=== PATIENT | male | born 2005 | race Caucasian/White ===

== ENCOUNTER 2023-04-10 18:52 | Emergency (ER) | payer MEDICAID ==
[~2023-04-10] VITALS: Ht 167.7 cm; Wt 71.6 kg
--- NOTE | 2023-04-10 19:17 | ED EENT ---
History of Present Illness General Stated Complaint: CONGESTION,FEVER,COUGH History of Present Illness Date Seen by Provider: Apr 10, 2023 Time Seen by Provider: 19:05 Initial Comments 17-year-old male is here with complaints of sinusitis, postnasal drip, cough for the past 1 week. Patient went to urgent care yesterday and was told that it is likely viral and he will need to be reassessed in 14 days of the start of symptoms. Patient also has subjective fever chills. Denies diarrhea, abdominal pain, shortness of breath, chest pain. No known sick contacts. Allergies and Home Medications Patient Home Medication List Home Medication List Reviewed: Yes Review of Systems Review of Systems Constitutional: chills, fever Respiratory: cough Physical Exam Vital Signs Vital Signs - First Documented 04/10/23 19:06 Temp 36.1 Pulse 75 Resp 18 B/P (MAP) 127/74 (91) Pulse Ox 100 O2 Delivery Room Air Height, Weight, BMI Height: '" Weight: lbs. oz. kg; BMI Method: General Appearance: WD/WN, no apparent distress Ears: bilateral ear TM normal Nose: sinus tenderness (Maxillary tenderness bilaterally) Mouth/Throat: normal mouth inspection, pharynx normal, other (Postnasal drip) Neck: non-tender, full range of motion, supple Cardiovascular: regular rate, rhythm Respiratory: chest non-tender, lungs clear, normal breath sounds Gastrointestinal: non tender, soft Neurologic/Psychiatric: alert, normal mood/affect, oriented x 3 Skin: normal color Progress/Results/Core Measures Results/Orders Lab Results Laboratory Tests Test 04/10/23 19:18 Range/Units Influenza Type A (RT-PCR) Not Detected Not Detecte Influenza Type B (RT-PCR) Not Detected Not Detecte SARS-CoV-2 RNA (RT-PCR) Not Detected Not Detecte My Orders Orders - REINA WARREN MD Influenza A And B By Pcr (04/10/23 19:06) Covid 19 Inhouse Test (04/10/23 19:06) Chest 1 View Ap/Pa Only (04/10/23 19:17) Vital Signs/I&O 04/10/23 19:06 Temp 36.1 Pulse 75 Resp 18 B/P (MAP) 127/74 (91) Pulse Ox 100 O2 Delivery Room Air Progress Progress Note : Progress Note 1. VIRAL SINUSITIS: - CXR: no acute findings - COVID test/ Rapid Flu test: negative - Advised to continue Tylenol Cold & Flu as needed - Advised over the counter Flonase nasal spray - Advised adequate hydration - Pt must be fever free for 24 hours not on any fever reducing medications o be considered non-contagious. Work note given. - F/u with PCP within 7 days -Patient's clinical exam is not proportionate to patient's complaints. Patient looks well and did not cough at all in the ER. Patient also has stable vital signs -The patient was seen in the ED, and treated appropriately to presentation at a specific point in time. Patient is informed that there is a possibility that di sease and illness can evolve and change in acuity rapidly or slowly after patient is discharged from the ER. Precautionary advice given to the patient for immediate return to ER if symptoms worsen or do not resolve, and to seek emergency care sooner rather than later. Pt also advised on the importance of PCP follow up and compliance with management and follow up plan with PCP and/or specialist, as this is part of the management plan. Pt verbally expressed understanding. Diagnostic Imaging Diagonstic Imaging: Xray Plain Films/CT/US/NM/MRI: chest Comments [facility]. [place], [place] NAME: KATY HOLBROOK [facility] REC#: [id number] PT STATUS: REG ER : 2005 PHYSICIAN: REINA WARREN MD ADMIT DATE: 04/10/23/ER FS Draft Date of Exam:04/10/23 CHEST 1 VIEW AP/PA ONLY INDICATION: Cough, fever and congestion Single AP view of the chest is obtained. There right costophrenic sulcus is not included. COMPARISON: No previous study is available for comparison at this time. FINDINGS: Heart size and pulmonary vasculature are within normal limits, and the lungs are clear, bilaterally. IMPRESSION: Unremarkable chest. Dictated on workstation # [id number] Dict: 04/10/231951 Trans: 04/10/231953 [facility] [id number] Interpreted by: BECKY HOOKER MD Electronically signed by: Departure Impression Primary Impression: Viral sinusitis Disposition: 01 HOME, SELF-CARE Condition: Stable Departure-Patient Inst. Patient Instructions: Sinusitis, Adult ED, Viral Upper Respiratory Infection, Adult (DC) Add. Discharge Instructions: - Advised to continue Tylenol Cold & Flu as needed - Advised over the counter Flonase nasal spray - Advised adequate hydration - Pt must be fever free for 24 hours not on any fever reducing medications o be considered non-contagious. Work note given. - F/u with PCP within 7 days Work/School Note: Work Release Form Date Seen in the Emergency Department: Apr 10, 2023 Return to Work: Apr 13, 2023 Restrictions: Return-No Fever (24hrs) REINA WARREN MD Apr 10, 2023 19:17
--- NOTE | 2023-04-10 19:55 | Diagnostic Imaging Report ---
INDICATION: Cough, fever and congestion Single AP view of the chest is obtained. There right costophrenic sulcus is not included. COMPARISON: No previous study is available for comparison at this time. FINDINGS: Heart size and pulmonary vasculature are within normal limits, and the lungs are clear, bilaterally. IMPRESSION: Unremarkable chest. Dictated by: Dictated on workstation # [id number]
[2023-04-10 20:21] VITALS: BP 118/82
== END 2023-04-10 20:23 | disposition home or self-care (01) ==
LOC: ER FS 18:55
DX: J32.8 Other chronic sinusitis (principal)
CPT/HCPCS: 71045; 87636